=== PATIENT | female | born 1945 | race Caucasian/White ===

== ENCOUNTER → 2017-06-13 | Outpatient (CLI) | payer MEDICARE ==
[~2017-06-13] MED LIST: ALE70 PO; CALC600T72 PO; ZOLM5 PO
--- NOTE | 2017-06-13 09:30 | RADIOLOGY IMAGING REPORT ---
[place] [facility] [place]IENT NAME: Senia Gordon : 1945 MR: [id number] V: [id number] EXAM DATE: ORDERING PHYSICIAN: JAYCEE HU TECHNOLOGIST: Location: [facility] Patient: Senia Gordon : 1945 Visit/Account:[id number] Date of Sevice: 06/13/2017 DEXA Scan 06/13/2017 9:00 AM HISTORY: Postmenopausal osteoporosis Comparison: DEXA scan from 02/17/2015. LUMBAR SPINE: The bone mineral density (BMD) measured from L1-L4 correlates with a Z-score of 1.3 and a T-score of -0.8 which is within lower normal range as defined by the World Health Organization. The correspondi ng risk of fracture in the lumbar spine is increased less than 2 times compared with a young adult re ference population. This value has increased by 2.6 % since the prior study. More than 5% change is considered significant. There is degenerative endplate sclerosis at L2-3 associated with scoliotic curvature. L1 which is not involved with degenerative sclerosis does have a more diminished BMD of 0. 864 with a T score of -2.2. HIP: Bone mineral density (BMD) measured in the Left total hip region correlates with a Z-score -0.6 and a T-score of -2.5 which is osteoporotic as defined by the World Health Organization. The correspondin g risk of fracture in the hip is increased 6 times compared with a young adult reference population. This value has decreased by 4.9 % since the prior study. More than 5% change is considered significa nt. Bone mineral density (BMD) measured in the Femoral Neck region measures 0.628 g/cm2. T-score is -3. 0. IMPRESSION: 1. Lumbar spine: Within lower normal range. There has been No significant change in the bone minera l density since the previous exam. See above discussion regarding degenerative sclerosis affecting BM D. 2. Left Total Hip: Osteoporosis. There has been a not quite statistically significant interval decr ease in the bone mineral density since the previous exam. 3. Femoral Neck: Bone Mineral Density is 0.628 g/cm2. Osteoporosis. The next DEXA scan of this patient should include the following sites: L1-L4 and the left hip. FRAX? WHO Fracture Risk Assessment Tool link: <http://www.shef.ac.uk/FRAX/tool.jsp?locationValue=9> PLEASE NOTE: 1) The World Health Organization defines low BMD as follows: T-score Normal > -1 Osteopenia < -1 and > -2.5 Osteoporosis < -2.5 without fractures Established osteoporosis < -2.5 with fractures 2) In general, you may wish to consider: Diagnosis Treatment Follow-up DEXA Normal BMD Prevention 2-3 years Osteopenia Prevention/therapy 1-2 years Osteoporosis Therapy Yearly 3) Fracture risk estimated from the T-score is more accurate for vertebral fractures (often spontane ous) than for hip fractures. Report Dictated By: Leonardo Parsons MD at 06/13/2017 9:24 AM Report E-Signed By: Leonardo Parsons MD at 06/13/2017 9:26 AM WSN:[id number]
--- NOTE | 2017-06-14 08:37 | RADIOLOGY IMAGING REPORT ---
FACILITY: [facility] PATIENT NAME: HANNAH MEZA : [id number] MR: [id number] V: [id number] EXAM DATE: ORDERING PHYSICIAN: JAYCEE HU TECHNOLOGIST: Halie Miranda PROCEDURE:BILATERAL DIGITAL SCREENING MAMMOGRAM WITH CAD ASSISTED INTERPRETATION & 3D TOMOSYNTHESIS COMPARISON:Prior mammograms 12/13/15, 04/26/11. INDICATIONS:SCREENING FINDINGS: Moderately dense fibroglandular tissue is seen throughout the breasts. The parenchymal pattern has remained stable allowing for difference in mammographic technique & patient positioning. There is no evidence of malignant appearing mass, malignant appearing calcifications or other secondary sign of malignancy in either breast. DIAGNOSTIC CATEGORY 1--NEGATIVE. RECOMMENDATIONS: ROUTINE MAMMOGRAM AND CLINICAL EVALUATION. IMPRESSION: BIRADS 1: Negative No significant abnormality is seen. Dictated by: Nguyen Coyne M.D. on 06/13/2017 at 17:29 Transcribed by: HARRIETT on 06/14/2017 at 8:16 Approved by: Nguyen Coyne M.D. on 06/14/2017 at 8:36 [facility]
== END ==
LOC: MAMO 02:29
PROVIDERS: ATTEND Family Medicine
DX: Z13.820 Encounter for screening for osteoporosis (principal); Z12.31 Encounter for screening mammogram for malignant neoplasm of breast; M81.0 Age-related osteoporosis without current pathological fracture
CPT/HCPCS: 77063; 77067; 77080